=== PATIENT | female | born 1985 | race Caucasian/White ===

== ENCOUNTER 2016-02-18 16:58 | Emergency (ER) | payer MEDICAID ==
[2016-02-18 17:06] VITALS: TEMP 98.6; BMI 39.2
--- NOTE | 2016-02-18 17:54 | DIRPT ---
CLINICAL DATA: Right knee pain for 2 days. No known injury. EXAM: RIGHT KNEE - COMPLETE 4+ VIEW COMPARISON: 01/05/2012 FINDINGS: The joint spaces are maintained. No fracture or osteochondral abnormality. No joint effusion. IMPRESSION: Normal right knee radiographs. Electronically Signed By: Hazel Vidal M.D. On: 02/18/2016 17:51
[2016-02-18 18:28] VITALS: BP 156/70; PULSE 72
[2016-02-18] MEDS ORDERED: BUPIVACAINE 0.5% 30 ML VIAL INF ONE (18:51)
[2016-02-18] MEDS ORDERED: TRIAMCINOLONE 40 MG/ML VIAL INTRAART ONE (18:51)
--- NOTE | 2016-02-18 18:58 | EDPRACDOC ---
- General Information Chief Complaint: Knee Pain Stated Complaint: R KNEE PAIN Time Seen by Provider: 02/18/16 18:51 Information Source: Patient Mode of Arrival: Car Home Medications: Home Medications Dicyclomine HCl [Bentyl] 20 mg PO Q6H PRN #30 tab 12/12/15 Meloxicam 15 mg PO DAILY #15 tab 02/18/16 Allergies/Adverse Reactions: Allergies Allergy/AdvReac Type Severity Reaction Status Date / Time amoxicillin trihydrate Allergy HIVES Verified 12/12/15 11:28 [From Amoxil] - History of Present Illness Onset: pilot captain HPI: PT STATES OVER THE LAST SEVERAL DAYS SHE HAS BEEN HAVING RIGHT KNEE PAIN THAT IS WORSE IN THE AM AND LOOSENS THROUGHOUT THE DAY AND HAVING MEDIAL KNEE PAIN SOMETIMES FEELS LOOSE. Knee Problem Location: Right Mechanism: Reports: Unknown (POSSIBLE TWISTING INJURY 3-4 DAYS AGO) Circumstances: Reports: Spontaneous Relevant History: Reports: None Tetanus Up To Date?: No Able to Bear Weight: Fully (BUT PAINFUL) Pain Severity: Reports: Mild, Moderate Associated Signs & Symptoms: Reports: Swelling (MILD MEDIAL RIGHT KNEE) ED Past Medical History - History Reviewed Yes Nurses notes reviewed and agree except as marked Travel Outside of [place] in the Last 3 Months?: No - Patient Medical History GI/ History: Reports: Urinary Tract Infection Psychological History: Reports: Anxiety. Denies: Depression, Substance Use Disorder Systemic History: Reports: Anemia. Denies: Cancer, Lupus Surgical History: Reports: Cholecystectomy, Tonsillectomy/Adnoidectomy, Other ( csecx2) - Family Medical History Reports: Diabetes, Cancer. Denies: Hypertension, Stroke, Cardiac Disorders - Social Medical History Smoking Status: Heavy tobacco smoker (5 or more cigarettes/day or daily pipe/ cigar) Social History: Denies: Amphetamine Use, Barbiturate Use, Benzodiazipine Use, Cocaine Use, Heroin Use, Marijuana Use, Methadone Use, MDMA (Ecstasy) Use, Substance Use Disorder ETOH: None Substance Abuse: None Lives With: Other Lives In: Home EDM Review of Systems - Review of Systems ROS Negative Except as Marked: Yes All systems reviewed and were negative except as marked Constitutional: No Symptoms Reported. negative: Fever, Chills, Weakness, Fatigue, Loss of Appetite Eyes: No Symptoms Reported. negative: Redness, Blurred Vision, Double Vision, Discharge, Pain, Light Sensitive, Photophobia Ears: No Symptoms Reported. negative: Pain, Hearing Loss, Drainage, Ear Pulling Throat: No Symptoms Reported. negative: Pain, Swelling Nose: No Symptoms Reported. negative: Congestion, Bleeding, Discharge, Injection, Swelling, Deformity, Ecchymosis, Tender, Abrasion, Laceration Mouth: No Symptoms Reported. negative: Pain, Drooling Respiratory: No Symptoms Reported. negative: Cough, Brassy Cough, Barky Cough, Shortness of Breath, Wheezing, Hemoptysis Cardiovascular: No Symptoms Reported. negative: Chest Pain, Palpitations, Syncope, Edema, Orthopnea, PND, Skin Mottling, Cyanosis Gastrointestinal: No Symptoms Reported. negative: Pain, Constipation, Nausea, Vomiting, Diarrhea, Melena, Formula Intolerance Genitourinary: No Symptoms Reported. negative: Dysuria, Hematuria, Frequency, Discharge, Bleeding, Testicular Pain, Neurological: No Symptoms Reported. negative: Headache, Dizziness, Seizure, Numbness, Weakness, Speech Difficulty, Gait Difficulty Musculoskeletal: Knee (RT). negative: Arm, Ankle, Back, Chestwall, Elbow, Forearm, Femur, Foot, Hand, Hip, Leg, Neck, Pelvis, Ribs, Shoulder, Wrist Integumentary: No Symptoms Reported. negative: Itching, Rash, Bruising, Wound Allergic/Immunologic: No Symptoms Reported. negative: Hives, Itching Hematologic: No Symptoms Reported. negative: Lymphadenopathy, Easy Bruising, Easy Bleeding Endocrine: No Symptoms Reported. negative: Weight Gain, Weight Loss Psychiatric: No Symptoms Reported. negative: Anxiety, Depression, Hallucinations, Insomnia, Suicidal - Physical Exam Constitutional: Alert (Awake), No apparent distress Oriented to: Time, Person, Place Last recorded Vital Signs: Last Vital Signs Temp 98.6 F 02/18/16 17:03 Pulse 72 02/18/16 18:27 Resp 18 02/18/16 18:27 BP 156/70 02/18/16 18:27 Pulse Ox 100 02/18/16 18:27 Oxygen Pulse Oxygen Saturation 100 O2 Device Room Air Oxygen Flow Rate Fraction of Inspired Oxygen ( FIO2) - HEENT Head: Normal ( normocephalic) Eye Exam: Normal (PERRL, EOMI, Sclera white) Oropharynx: Normal (Pharynx:Moist without exudate,Gums-no swelling) Tympanic Membrane: Normal ENT EAC: Normal TMJ: Normal Nose: No Symptoms Reported (septum midline) Neck: Normal (FROM, trachea at midline) - Respiratory/Cardiovascular Respiratory: Normal - CTA (BBS clear to auscultation without adventitious sounds ) Cardiovascular: Normal (RRR without murmur, gallop or rub) - GI Auscultation: Normal (NABS) Palpation: Normal (Soft,No rebound or guarding, non distended) Tenderness: Non tender March's Sign: Negative - Musculoskeletal Back: Normal (Non-Tender) Extremities: Normal (Normal tone, Pulses 2+ No cyanosis or edema, FROM) - Integumentary Skin: Normal, Warm, Dry Lymphatics: Normal (no adenopathy) - Neurologic Memory Impaired: Normal Motor Function: Normal (Normal tone, Pulses 2+ No cyanosis or edema, FROM) Cranial Nerve: Normal (CN II-X11 intact sensation, strength 5/5) Cerebellar: Normal Mood Description: Normal Perception: Normal ED Knee Problem Phys Exam - Musculoskeletal Knee: Swelling (RIGHT MEDIAL) Knee Ligaments: Normal Knee Meniscus: Normal Thigh: Normal Lower Leg: Normal Distal Function/Circulation: Normal - Integumentary Skin: Normal, Other (NO REDNESS OR WARMTH TO KNEE) Lymphatics: Normal ED Procedures - Arthrocentesis Informed of risks, benefits and alternatives described: Yes Informed Consent Signed: Verbal Indication: Pain Control, Intra-articular Injection Prep: Betadine Equipment used during procedure: Sterile Gloves Needle/Catheter was inserted into: Knee (RT) Joint Injected with: Bupivacaine, Steroid (KENALOG 40MG) Arthrocentesis Notes: PT TOLERATED WELL AND HAD SOME RELIEF 2-3 MINUTES AFTER INJECTION. BLEEDING CONTROLLED WITH PRESSURE. - Diagnostic Imaging KNEE Image interpreted by: Radiologist IMPRESSION: Normal right knee radiographs Decision Time to Discharge: 19:44 - Departure Disposition: Home Condition: Stable Final Diagnosis: Sprain of knee Instructions: RICE: Routine Care for Injuries, Knee Sprain (ED) Education/Counseling Given To: Patient Education/Counseling Given Regarding: Diagnosis, Treatment, Prognosis, Follow Up Referrals: Camron Smalls MD [Primary Care Provider] - One Week Dony Sepulveda MD [Staff Physician] - One Week Prescriptions: Meloxicam 15 mg PO DAILY #15 tab Additional Instructions: RICE. RETURN FOR WORSE OR DIFFERENT SYMPTOMS.
== END 2016-02-18 20:10 | disposition home or self-care (01) ==
LOC: EDMC 16:58
DX: S83.91XA Sprain of unspecified site of right knee, initial encounter (principal); X58.XXXA Exposure to other specified factors, initial encounter; F17.200 Nicotine dependence, unspecified, uncomplicated
CPT/HCPCS: 20610; 73564; 99283; J3301; J3490